=== PATIENT | male | born 1985 | race Caucasian/White ===

== ENCOUNTER 2019-06-08 20:55 | Emergency (ER) | payer OTHER ==
[2019-06-08 21:04] VITALS: BP 130/73; PULSE 52; TEMP 98; BMI 38.0
--- NOTE | 2019-06-08 21:04 | PDOC ---
Rapid Medical Evaluation Medical Evaluation: I have performed a brief in-person evaluation of this patient. The patient presents with a chief complaint of: c/o L lower toothache x 4 days; took 1600 mg of Motrin at 5 PM (took 1600 for the whole day and Naprosyn 1 pill in AM) Pertinent physical exam findings: +cracked L lower molar tooth I have ordered the following: Nothing The patient will proceed to the ED for further evaluation. 06/08/19 21:00
[2019-06-08] MEDS ORDERED: LIDOCAINE HCL 2% JELLY (5 ML/TUBE) ONE (21:26)
[2019-06-08] MEDS ORDERED: LIDOCAINE HCL 2% JELLY (30 ML/TUBE) TP ONE (21:27)
--- NOTE | 2019-06-08 21:40 | PDOC ---
History of Present Illness - General Chief Complaint: Toothache Stated Complaint: TOOTHACHE Time Seen by Provider: 06/08/19 21:00 History Source: Patient Exam Limitations: Clinical Condition - History of Present Illness Initial Comments: 06/08/19 21:33 Patient with no significant past medical history presented with complaint of 4- day history of pain to left lower back molars. Patient report he has a cracked tooth which might be infected. Patient plan to walk into a dental clinic tomorrow but came in today because he could not tolerate the pain. Patient reports taking 2 tablets of 800 mg ibuprofen with no improvement 4 hours ago. Denies abdominal pains Is this a multiple visit Asthma Patient?: No Past History - Past Medical History Allergies/Adverse Reactions: Allergies Allergy/AdvReac Type Severity Reaction Status Date / Time No Known Allergies Allergy Verified 06/08/19 21:04 Home Medications: Ambulatory Orders Amoxicillin - [Amoxicillin 500mg Capsule -] 500 mg PO BID #14 capsule 06/08/19 Lidocaine 2% Viscous Oral [Xylocaine 2% Viscous Oral -] 2 ml PO Q6H PRN #20 ml 06/08/19 COPD: No - Psycho Social/Smoking Cessation Hx Smoking History: Never smoked Review of Systems - Review of Systems Able to Perform ROS?: Yes Is the patient limited [place]ian proficient: No Constitutional: No: Chills, Fever HEENTM: Yes: See HPI, Dental Problems. No: Eye Pain, Blurred Vision, Tearing, Recent change in vision, Double Vision, Cataracts, Ear Pain, Ocular Prothesis, Ear Discharge, Nose Pain, Nose Congestion, Tinnitus, Nose Bleeding, Hearing Loss , Throat Pain, Throat Swelling, Mouth Pain, Difficulty Swallowing, Mouth Swelling, Other Respiratory: No: Symptoms reported, See HPI, Cough, Orthopnea, Shortness of Breath, SOB with Exertion, SOB at Rest, Stridor, Wheezing, Productive cough, Hemoptysis, Other Cardiac (ROS): No: Symptoms Reported, See HPI, Chest Pain, Edema, Irregular Heart Rate, Lightheadedness, Palpitations, Syncope, Chest Tightness, Other ABD/GI: No: Symptoms Reported Musculoskeletal: No: Symptoms Reported Integumentary: No: Symptoms Reported All Other Systems: Reviewed and Negative *Physical Exam - Vital Signs Last Vital Signs Temp Pulse Resp BP Pulse Ox 98 F 52 L 18 130/73 98 06/08/19 21:01 06/08/19 21:01 06/08/19 21:01 06/08/19 21:01 06/08/19 21:01 - Physical Exam General Appearance: Yes: Nourished, Appropriately Dressed, Mild Distress HEENT: positive: Normal ENT Inspection, Other (cracked and chipped tooth off left back lower last molar. no erythema to gums. no swelling to area) Neck: positive: Supple Respiratory/Chest: positive: Lungs Clear, Normal Breath Sounds. negative: Respiratory Distress, Accessory Muscle Use Cardiovascular: positive: Regular Rhythm, Regular Rate Musculoskeletal: positive: Normal Inspection Extremity: positive: Normal Inspection Integumentary: positive: Normal Color Neurologic: positive: Fully Oriented, Alert, Normal Response Medical Decision Making - Medical Decision Making 06/08/19 21:35 Patient with no significant past medical history presented with complaint of 4- day history of pain to left lower back molars. Patient report he has a cracked tooth which might be infected. Patient plan to walk into a dental clinic tomorrow but came in today because he could not tolerate the pain. Patient reports taking 2 tablets of 800 mg ibuprofen with no improvement 4 hours ago. Denies abdominal pains Exam significant for broken have to to left lower back molar with mild erythema surrounding them. No swelling to area. Topical lidocaine placed into cracked tooth which patient started having immediate improvement in dental pain. Patient stable for discharge on naproxen as needed for pain and amoxicillin antibiotics with advised to follow-up with dentist. Patient stable for discharge Discharge - Discharge Information Problems reviewed: Yes Clinical Impression/Diagnosis: Pain due to dental caries, Periodontitis Condition: Stable Disposition: HOME - Admission No - Additional Discharge Information Prescriptions: Amoxicillin - [Amoxicillin 500mg Capsule -] 500 mg PO BID #14 capsule Lidocaine 2% Viscous Oral [Xylocaine 2% Viscous Oral -] 2 ml PO Q6H PRN #20 ml PRN Reason: dental pain - Follow up/Referral - Patient Discharge Instructions Patient Printed Discharge Instructions: DI for Dental Pain, DI for Tooth Decay Additional Instructions: Take medications as prescribed. You can add home Motrin as needed. Follow-up with dentist as discussed - Post Discharge Activity
== END 2019-06-08 21:53 | disposition home or self-care (01) ==
LOC: JERFT 20:55
DX: K02.9 Dental caries, unspecified (principal); K05.30 Chronic periodontitis, unspecified
CPT/HCPCS: 99281-25

== ENCOUNTER 2022-01-02 03:35 | Emergency (ER) | payer OTHER ==
[2022-01-02 04:03] VITALS: BMI 36.6
[2022-01-02] MEDS ORDERED: ONDANSETRON 4 MG/2 ML VIAL IVPUSH ONE (04:39)
[2022-01-02] MEDS ORDERED: HYDROmorphone HCL CARPU-JECT 2 MG/1 ML DISP.SYRIN IVPUSH ONE (04:39)
[2022-01-02] MEDS ORDERED: HYDROmorphone HCl 2 MG/ML VIAL ONE (04:48)
[2022-01-02] MEDS ORDERED: ONDANSETRON 4 MG/2 ML VIAL ONE (04:48)
[2022-01-02] MEDS ORDERED: CLINDAMYCIN 600MG PREMIX IVPB 600 MG/50 ML BAG IVPB ONE ×2 (05:28→06:00)
[2022-01-02 05:39] LABS: BASO % 0.3 % (0-2.0); EOS % 1.7 % (0-4.5); HEMATOCRIT 43.7 % (35.4-49); HEMOGLOBIN 14.5 GM/dL (11.7-16.9); LYMPH % 19.2 % (8-40); MCH 28.9 pg (25.7-33.7); MCHC 33.1 g/dl (32.0-35.9); MEAN CELL VOLUME 87.1 fl (80-96); MEAN PLT VOLUME 9.7 fl (7.5-11.1); MONO % 8.6 % (3.8-10.2); NEUT % 70.2 % (42.8-82.8); PLATELET COUNT 178 10^3/uL (134-434); RBC 5.02 M/mm3 (4.00-5.60); RDW 14.1 % (11.9-15.9); WHITE BLOOD COUNT 7.6 K/mm3 (4.0-10.0)
[2022-01-02 05:50] LABS: INR 1.11 (0.83-1.09); PROTHROMBIN TIME (PATIENT) 12.8 SEC (9.7-13.0)
[2022-01-02 05:52] LABS: ACTIVATED PTT 35.8 SECONDS (25.2-36.5)
[2022-01-02 06:01] LABS: CALCIUM 8.8 mg/dL (8.5-10.1)
[2022-01-02 06:02] LABS: ALBUMIN 3.6 g/dl (3.4-5.0)
[2022-01-02 06:05] LABS: CREATININE 0.9 mg/dL (0.55-1.3)
[2022-01-02 06:07] LABS: BILIRUBIN,TOTAL 0.4 mg/dL (0.2-1); TOT PROT 6.8 g/dl (6.4-8.2)
[2022-01-02] MEDS ORDERED: IBUPROFEN 600 MG TABLET (FP) PO ONE ×2 (08:31→08:35)
[2022-01-02 08:51] VITALS: BP 157/99; PULSE 56; TEMP 97
== END 2022-01-02 08:50 | disposition short-term general hospital (02) ==
LOC: JER 03:35
PROC: 3E03329 Introduction of Other Anti-infective into Peripheral Vein, Percutaneous Approach (ICD-10-PCS; principal; 2022-01-02)
PROC: 3E033NZ Introduction of Analgesics, Hypnotics, Sedatives into Peripheral Vein, Percutaneous Approach (ICD-10-PCS; 2022-01-02)
DX: T81.89XA Other complications of procedures, not elsewhere classified, initial encounter (principal); Z48.814 Encounter for surgical aftercare following surgery on the teeth or oral cavity
CPT/HCPCS: 0241U-QW; 36415; 80053; 85025; 85610; 85730; 86850; 86900; 86901; 99285-25